=== PATIENT | female | born 1960 | race Caucasian/White ===

== ENCOUNTER → 2018-01-03 | Outpatient (CLI) | payer OTHER | LOC: M.CT 07:59 | DX: M47.894 Other spondylosis, thoracic region (principal); K80.20 Calculus of gallbladder without cholecystitis without obstruction; I89.8 Other specified noninfective disorders of lymphatic vessels and lymph nodes; I47.1 Supraventricular tachycardia; R12 Heartburn ==

== ENCOUNTER 2021-06-17 16:18 | Inpatient (IN) | payer OTHER ==
[~2021-06-17] VITALS: Ht 170.2 cm; Wt 88.5 kg
[2021-06-17 16:25] VITALS: BP 112/72
[2021-06-17] MEDS ORDERED: SIMVASTATIN80 MG PO (16:33)
[2021-06-17] MEDS ORDERED: PROCARDIA XL30 MG PO (16:33)
[2021-06-17 17:12] LABS: HEMATOCRIT 36.7 % (37.0-47.0); HEMOGLOBIN 12.8 gm/dL (12.0-15.0); MCH 30.8 pg (26.0-34.0); MCHC 34.9 g/dL (28.0-37.0); MCV 88.2 fL (80.0-100.0); MPV 8.2 fl. (7.2-11.1); NUCLEATED RBCS 0 /100WBC; PLATELET COUNT* 186 thou/uL (150-400); RBC 4.16 mil/uL (4.20-5.00); RDW-CV 13.2 % (10.5-14.5); WBC 5.1 thou/uL (4.0-11.0)
[2021-06-17 17:18] LABS: CALCIUM 7.7 mg/dL (8.5-10.1); CREATININE 1.3 mg/dL (0.6-1.3); POTASSIUM 3.4 mmol/L (3.5-5.1)
[2021-06-17 17:31] LABS: ALBUMIN 2.1 g/dL (3.4-5.0); TOTAL BILIRUBIN 1.2 mg/dL (<0.1-1.0); TOTAL PROTEIN 6.4 g/dL (6.4-8.2)
[2021-06-17 17:45] LABS: ABSOLUTE LYMPHOCYTES 0.7 thou/uL (0.8-5.3); ABSOLUTE MONOCYTES 0.3 thou/uL (0.0-1.2); ABSOLUTE NEUTROPHILS 4.1 thou/uL (1.6-8.1)
[2021-06-17 17:48] LABS: PLATELET ESTIMATE ADEQUATE
[2021-06-17 21:00] VITALS: BP 121/71
[2021-06-18 01:00] VITALS: BP 112/63
[2021-06-18 05:00] VITALS: BP 113/64
[2021-06-18 09:51] VITALS: BP 107/59
[2021-06-18] MEDS ORDERED: OTEZLA30 MG PO (10:28)
[2021-06-18] MEDS ORDERED: CARDIZEM CD 18180 M3 PO (10:28)
[2021-06-18] MEDS ORDERED: ZOCOR 20 MG TAB20 M1 PO (10:29)
[2021-06-18] MEDS ORDERED: BUMETANIDE 1 MG1 M1 PO (10:29)
[2021-06-18 10:41] VITALS: BP 107/59
[2021-06-18 15:47] VITALS: BP 102/49
[2021-06-18 20:00] VITALS: BP 129/66
[2021-06-19] VITALS (7 sets, daily range): BP systolic 107–145; BP diastolic 62–88
[2021-06-19 04:05] LABS: HEMATOCRIT 34.6 % (37.0-47.0); MCH 30.7 pg (26.0-34.0); MCHC 34.5 g/dL (28.0-37.0); MCV 88.8 fL (80.0-100.0); MPV 8.4 fl. (7.2-11.1); RBC 3.9 mil/uL (4.20-5.00); WBC 5.8 thou/uL (4.0-11.0)
[2021-06-19 04:29] LABS: POTASSIUM 3.7 mmol/L (3.5-5.1)
--- NOTE | 2021-06-19 11:39 | EKG ---
[place] [address] ELECTROCARDIOGRAM REPORT Name: CITLALY BAKER Room: [address] ADM IN .R.#: [id number] Admission: 06/17/21 Attend Phys: Vaishnavi Ramírez, Discharge: Date of : 62 Date of Service: 06/17/21 1656 Report #: [id number] THIS REPORT FOR: //name// [facility] ED Test Date: 2021-06-17 Test Time: 16:56:45 Pat Name: CITLALY BAKER Department: Room: [facility] Gender: F Senior Lead Software Engineer: MARYJANE : 1960 Requested By: Bryn Carbajal Order Number: [id number] MD: Vince Callahan Measurements Intervals [place] Rate: 75 P: 35 MI: 126 QRS: 3 QRSD: 97 T: 2 QT: 400 QTc: 447 Interpretive Statements Sinus rhythm Low voltage, precordial leads Borderline T wave abnormalities Baseline wander in lead(s) II,III,aVR,aVF,V3,V4,V6 No previous ECG available for comparison Electronically Signed On 06-19-2021 11:38:53 CDT by Vince Callahan [email or web address] <ELECTRONICALLY SIGNED> By: Vince Callahan MD, FAC 06/19/21 1138 1656 1656 Vince Callahan MD, FAC /EPI
[2021-06-20 00:04] VITALS: BP 144/85
[2021-06-20 03:44] VITALS: BP 116/74
[2021-06-20 04:23] LABS: HEMATOCRIT 33.3 % (37.0-47.0); HEMOGLOBIN 11.3 gm/dL (12.0-15.0); MCH 30.7 pg (26.0-34.0); MCHC 33.9 g/dL (28.0-37.0); MCV 90.6 fL (80.0-100.0); MPV 8.5 fl. (7.2-11.1); RBC 3.68 mil/uL (4.20-5.00); RDW-CV 13.3 % (10.5-14.5); WBC 5.4 thou/uL (4.0-11.0)
[2021-06-20 04:31] LABS: CALCIUM 7.9 mg/dL (8.5-10.1); POTASSIUM 3.6 mmol/L (3.5-5.1)
[2021-06-20 07:48] VITALS: BP 142/70
[2021-06-20 12:00] VITALS: BP 126/55
[2021-06-20 20:00] VITALS: BP 137/74
[2021-06-21] VITALS (7 sets, daily range): BP systolic 134–161; BP diastolic 64–92
[2021-06-22 04:57] VITALS: BP 129/73
[2021-06-22 06:00] LABS: ABSOLUTE LYMPHOCYTES 0.4 thou/uL (0.8-5.3); ABSOLUTE MONOCYTES 0.5 thou/uL (0.0-1.2); ABSOLUTE NEUTROPHILS 5.4 thou/uL (1.6-8.1); BASOPHILS 0.2 %; EOSINOPHILS 0.1 %; HEMATOCRIT 38.3 % (37.0-47.0); HEMOGLOBIN 12.9 gm/dL (12.0-15.0); LYMPHOCYTES 6.9 %; MCH 30.3 pg (26.0-34.0); MCHC 33.7 g/dL (28.0-37.0); MONOCYTES 8.3 %; MPV 7.8 fl. (7.2-11.1); NUCLEATED RBCS 0 /100WBC; PLATELET COUNT* 317 thou/uL (150-400); POLYS 84.5 %; RBC 4.26 mil/uL (4.20-5.00); RDW-CV 13.4 % (10.5-14.5); WBC 6.4 thou/uL (4.0-11.0)
[2021-06-22 06:38] LABS: ALBUMIN 2.4 g/dL (3.4-5.0); CALCIUM 7.8 mg/dL (8.5-10.1); CREATININE 0.9 mg/dL (0.6-1.3); POTASSIUM 3.8 mmol/L (3.5-5.1); TOTAL BILIRUBIN 0.6 mg/dL (<0.1-1.0); TOTAL PROTEIN 5.3 g/dL (6.4-8.2)
[2021-06-22 08:00] VITALS: BP 105/84
[2021-06-22 12:00] VITALS: BP 119/78
--- NOTE | 2021-06-22 15:49 | 2DMMODE ---
[place] [address] 2 D/M-MODE ECHOCARDIOGRAM Name: CITLALY BAKER Room: [address] IN .R.#: [id number] Admission: 06/17/21 Attend Phys: Vaishnavi Ramírez, Discharge: Date of : 62 Date of Service: 06/22/21 1549 Report #: [id number] THIS REPORT FOR: cc: Dipesh Concepcion MD, David L. MD [place], Michael J. MD [facility] ~ APPROVED REPORT Study performed: 06/22/2021 14:03:27 EXAM: Comprehensive 2D, Doppler, and color-flow Echocardiogram Patient Location: In-Patient Room #: 117 Status: routine BSA: 2.00 HR: 68 bpm BP: 119/78 mmHg Rhythm: NSR Other Information Study Quality: Good Indications Dyspnea 2D Dimensions IVSd: 11.42 (7-11mm) LVOT Diam: 21.71 (18-24mm) LVDd: 48.75 mm PWd: 11.01 (7-11mm) Ascending Ao: 30.03 (22-36mm) LVDs: 25.54 (25-40mm) Aortic Root: 33.14 mm Volumes Left Atrial Volume (Systole) LA ESV Index: 17.60 mL/m2 Aortic Valve AoV Peak Raymond.: 0.97 m/s AO Peak Gr.: 3.78 mmHg LVOT Max P.58 mmHg AO Mean Gr.: 2.17 mmHg LVOT Mean P.80 mmHg LVOT Max V: 0.63 m/s AO V2 VTI: 20.62 cm LVOT Mean V: 0.42 m/s IGO (VTI): 2.51 cm2 LVOT V1 VTI: 14.00 cm AI Rapides: 1.43 m/s2 [place] [address] 2 D/M-MODE ECHOCARDIOGRAM Name: CITLALY BAKER Room: [address] IN .R.#: [id number] Admission: 06/17/21 Attend Phys: Vaishnavi Ramírez, Discharge: Date of : 62 Date of Service: 06/22/21 1549 Report #: [id number] AI PHT: 680.29 ms Mitral Valve E/A Ratio: 0.96 MV Decel. Time: 331.51 ms MV E Max Raymond.: 0.52 m/s MV PHT: 96.14 ms MVA (PHT): 2.29 cm2 Pulmonary Valve PV Peak Raymond.: 1.01 m/s PV Peak Gr.: 4.04 mmHg Tricuspid Valve RAP Estimate: 5.00 mmHg TR Peak Gr.: 20.56 mmHg RVSP: 25.00 mmHg PA Pressure: 25.00 mmHg Left Ventricle The left ventricle is normal size. There is normal LV segmental wall motion. There is normal left ventricular wall thickness. Left ventricular systolic function is normal. LVEF is 55-60%. Transmitral Doppler flow pattern suggests impaired LV relaxation. Right Ventricle The right ventricle is normal size. The right ventricular systolic function is normal. Atria The left atrium size is normal. The right atrium size is normal. Aortic Valve The aortic valve is normal in structure. Mild aortic regurgitation. There is no aortic valvular stenosis. Mitral Valve The mitral valve is normal in structure. There is no mitral valve regurgitation noted. No evidence of mitral valve stenosis. Tricuspid Valve The tricuspid valve is normal in structure. Mild tricuspid regurgitation. No pulmonary hypertension. Pulmonic Valve The pulmonary valve is normal in structure. Trace [place]monic [place] [address] 2 D/M-MODE ECHOCARDIOGRAM Name: OLIVIACITLALY R Room: [address] IN [facility]#: [id number] Admission: 06/17/21 Attend Phys: Vaishnavi Ramírez, Discharge: Date of : 62 Date of Service: 06/22/21 1549 Report #: [id number] Great Vessels The aortic root is normal in size. IVC is normal in size and collapses >50% with inspiration. Pericardium There is no pericardial effusion. <Conclusion> The left ventricle is normal size. The left ventricle is normal size. There is normal left ventricular wall thickness. Left ventricular systolic function is normal. LVEF is 55-60%. Transmitral Doppler flow pattern suggests impaired LV relaxation. Mild aortic regurgitation. Mild tricuspid regurgitation. No pulmonary hypertension. IVC is normal in size and collapses >50% with inspiration. <ELECTRONICALLY SIGNED> By: Primitivo Peterson MD, FACC 06/22/21 1549 1549 1549 Primitivo Peterson MD, FACC /INF
[2021-06-22 16:45] VITALS: BP 141/80
[2021-06-22 20:10] VITALS: BP 123/71
[2021-06-23 00:05] VITALS: BP 131/69
[2021-06-23 04:15] VITALS: BP 148/71
[2021-06-23 05:43] LABS: HEMATOCRIT 38.7 % (37.0-47.0); HEMOGLOBIN 13.3 gm/dL (12.0-15.0); MCH 30.7 pg (26.0-34.0); MCHC 34.3 g/dL (28.0-37.0); MCV 89.5 fL (80.0-100.0); MPV 7.9 fl. (7.2-11.1); NUCLEATED RBCS 0 /100WBC; PLATELET COUNT* 319 thou/uL (150-400); RBC 4.32 mil/uL (4.20-5.00); RDW-CV 13.2 % (10.5-14.5); WBC 7.3 thou/uL (4.0-11.0)
[2021-06-23 06:04] LABS: ALBUMIN 2.3 g/dL (3.4-5.0); APTT 25.4 Seconds (25.0-31.3); CALCIUM 8.1 mg/dL (8.5-10.1); CREATININE 0.9 mg/dL (0.6-1.3); INR 1.1; MAGNESIUM 2.3 mg/dL (1.8-2.4); POTASSIUM 3.9 mmol/L (3.5-5.1); PROTIME 11.6 Seconds (9.20-11.50); TOTAL BILIRUBIN 0.6 mg/dL (<0.1-1.0); TOTAL PROTEIN 5.6 g/dL (6.4-8.2)
[2021-06-23 06:15] LABS: ABSOLUTE LYMPHOCYTES 0.5 thou/uL (0.8-5.3); ABSOLUTE MONOCYTES 0.1 thou/uL (0.0-1.2); ABSOLUTE NEUTROPHILS 6.6 thou/uL (1.6-8.1); PLATELET ESTIMATE ADEQUATE
[2021-06-23 06:16] LABS: ANISOCYTOSIS 1+; POIKILOCYTOSIS 1+
[2021-06-23 08:00] VITALS: BP 105/63
[2021-06-23 12:16] VITALS: BP 137/81
[2021-06-23 12:30] LABS: INFLUENZA A ANTIGEN Negative (Negative); INFLUENZA B ANTIGEN Negative (Negative)
[2021-06-23 16:59] VITALS: BP 130/79
--- NOTE | 2021-06-23 17:58 | CON ---
[address] [address] CONSULTATION Name: CITLALY BAKER Room: [address] ADM IN M.R.#: [id number] Admission: 06/17/21 Attend Phys: Vaishnavi Ramírez MD Discharge: Date of : 62 Report #: [id number] THIS REPORT FOR: cc: Dipesh Concepcion MD, David L. MD Pervez, Adeel MD ~ DATE OF CONSULTATION: 06/22/2021 REQUESTING PHYSICIAN: Javy Bridges MD INDICATION FOR CONSULTATION: Hypoxia, possible COVID-19. HISTORY OF PRESENT ILLNESS: A 61-year-old female with past medical history includes a history of supraventricular tachycardia. She does not have any other history of cardiac or respiratory disease. She is a lifetime nonsmoker. She has not been vaccinated for COVID-19. The patient states that she has had respiratory complaints beginning towards the first week of this month ago. She says that she has been short of breath. She has been coughing. Initially, she also did have nausea and vomiting as well as diarrhea. She has only had scanty sputum production. She does not have chest pain. She is not describing upper respiratory complaints. There is no increase in swelling of lower extremities. There is no calf pain. The patient used a home kit for COVID-19 and tested herself and she reports that the test was positive. The patient states that this was on 06/06. She says that subsequently she continued to have worsening shortness of breath and therefore eventually came to the emergency room at our hospital on 06/17. O2 saturation was in the 70s on initial presentation. She was maintaining O2 saturation in the low 90s with 4 liters of oxygen in place. Since then, the patient has been treated with dexamethasone. She has also received remdesivir and received Decadron, in fact received 1 unit of convalescent plasma as well. Upon arrival, a COVID-19 antigen was performed, but this was negative. The PCR for COVID-19 was sent off, which is in fact also just came back negative. The patient's chest x-rays; however, continues to show extensive pulmonary infiltrates. Her last chest x-ray is now 3 days old. The patient, however, is also requiring 5 liters of oxygen to maintain O2 saturation in the low 90s. Overall, she does report some improvement in shortness of breath since she arrived at this hospital. REVIEW OF SYSTEMS: For 12 points is negative except as mentioned above. PAST MEDICAL HISTORY: Supraventricular tachycardia, hyperlipidemia, , hysterectomy, just had an echocardiogram performed, which shows a left ventricular ejection fraction of 55-60% with a pulmonary artery systolic [place] 25. [place] [address] CONSULTATION Name: CITLALY BAKER Room: [address] IN .R.#: [id number] Admission: 06/17/21 Attend Phys: Vaishnavi Ramírez MD Discharge: Date of : 62 Report #: [id number] SOCIAL HISTORY: Lifetime nonsmoker. No known history of heavy alcohol use or illegal drug use. IMMUNIZATION HISTORY: Has not been vaccinated for COVID-19. FAMILY HISTORY: Her also recently had respiratory complaints and has just recovered. ALLERGIES: TETANUS TOXOID. CURRENT MEDICATIONS: List in [place] reviewed. Home medication list also in [facility] reviewed. PHYSICAL EXAMINATION: GENERAL: She is alert, awake and oriented, did not appear to be in any distress at this time. VITAL SIGNS: Has a pulse of 62 and a blood pressure of 141/80, saturating 94%. She is on 5 liters nasal cannula. Respiratory rate is 18. She is afebrile with a temperature of 36.0. HEENT: Head is normocephalic and atraumatic. Pupils are equal and reactive. There is no throat erythema. NECK: Does not show raised JVP, asymmetry, mass or lymph nodes. CHEST: Symmetrical expansion on inspection and palpation. On auscultation, breath sounds are bilaterally equal. I do not hear any added sounds. HEART: Regular. There is no murmur. ABDOMEN: Soft and nontender. LOWER EXTREMITIES: Showed no edema, no calf tenderness. SKIN: Dry and intact. NEUROLOGIC: Moves all extremities bilaterally equally and spontaneously with no focal deficit identified. ASSESSMENT AND PLAN: 1. Acute hypoxemic respiratory failure. The patient has extensive bilateral infiltrates and while it will also be possible for certain autoimmune processes as well as fluid overload to give this picture, at this point, it appears more likely to me that we are dealing with an acute respiratory tract infection. While atypical bacterial infections can also lead to this picture, the findings on the chest x-rays are more consistent with either a viral or atypical respiratory tract infection. There is a CTA chest already ordered by Dr. Bridges. I agree with proceeding with a CT chest to evaluate this further. 2. Extensive bilateral pulmonary infiltrates/possible COVID-19. Note that she tested positive at her home per her home kit on 06/06, but COVID-19 antigen on arrival is negative. COVID-19 PCR is also negative. I still feel that COVID-19 [place] [address] CONSULTATION Name: CITLALY BAKER Room: [address] IN [facility]#: [id number] Admission: 06/17/21 Attend Phys: Vaishnavi Ramírez MD Discharge: Date of : 62 Report #: [id number] will be possible, but various other viral and atypical/bacterial infections will also be possible. I will work this up further by obtaining COVID-19 antibodies. We will also do a viral respiratory panel. We will check influenza swab. Recommend obtaining a mycoplasma antibodies and also recommend obtaining urine for legionella antigen and pneumococcal antigen. The patient is already on doxycycline, pending further review by CT and serologies. I continued doxycycline and added ceftriaxone. I would continue dexamethasone in addition to COVID-19. It is beneficial to give her steroids in various other suspected infections as well. Also as COVID-19 is not completely ruled out at this time, I suggested continuing with 2 more doses of remdesivir as well unless the liver function tests rise further in which case I would discontinue. Regardless, even if the patient does have COVID-19 by this point, I would expect a viral load to be low and therefore she is unlikely to be significantly infectious and therefore, I feel that it is reasonable to keep her off isolation. 3. Elevated liver function tests. See discussion above. We will also check a lipase level. If it remains elevated, then we will also do a limited abdominal ultrasound. 4. Past medical history of supraventricular tachycardia. 5. Deep venous thrombosis prophylaxis. She is on Lovenox. 6. Clostridium difficile prophylaxis. We will add Lactinex. Thanks for this consultation. <ELECTRONICALLY SIGNED> By: Naman Soto MD 06/23/21 1758 1650 2045Akwan Soto MD /nt
[2021-06-23 21:00] VITALS: BP 125/73
[2021-06-24 04:44] VITALS: BP 129/60
[2021-06-24] MEDS ORDERED: DOXYCYCLINE 10100 MG PO (10:15)
[2021-06-24] MEDS ORDERED: DEXAMETHASONE1 MG PO (10:17)
[2021-06-24] MEDS ORDERED: PROAIR HFA8.5 GM INH (10:17)
[2021-06-24] MEDS ORDERED: PROTONIX40 M4 PO (10:17)
[2021-06-24 13:28] VITALS: BP 120/52
[2021-06-27 02:06] LABS: MYCOPLASMA PNEUMONIA IgG <100 U/mL (0-99); MYCOPLASMA PNEUMONIA IgM <770 U/mL (0-769)
== END 2021-06-24 14:40 | disposition home or self-care (01) | DRG 177 ==
LOC: M.ERS 16:18 → M.TBA-ER 17:51 → M.ORTHSURG 17:51 → M.TBA-ER 21:08 → M.ORTHSURG 06-18 11:11
PROVIDERS: Emergency Medicine Emergency Medical Services; Family Medicine; Internal Medicine; Internal Medicine Critical Care Medicine; ADMIT Internal Medicine; ATTEND Internal Medicine
DX: U07.1 COVID-19 (principal); J96.01 Acute respiratory failure with hypoxia; J12.82 Pneumonia due to coronavirus disease 2019; I47.1 Supraventricular tachycardia; E78.5 Hyperlipidemia, unspecified; E87.6 Hypokalemia; R74.01 Elevation of levels of liver transaminase levels; Z90.710 Acquired absence of both cervix and uterus; Z88.7 Allergy status to serum and vaccine

== ENCOUNTER → 2021-07-26 | Outpatient (CLI) | payer OTHER ==
[~2021-07-26] MED LIST: BUMETANIDE 1 MG1 M1 PO; CARDIZEM CD 18180 M3 PO; DEXAMETHASONE1 MG PO; DOXYCYCLINE 10100 MG PO; OTEZLA30 MG PO; PROAIR HFA8.5 GM INH; PROCARDIA XL30 MG PO; PROTONIX40 M4 PO; SIMVASTATIN80 MG PO; ZOCOR 20 MG TAB20 M1 PO
== END ==
LOC: M.LAB 12:36
PROVIDERS: ATTEND Internal Medicine Critical Care Medicine
DX: Z12.31 Encounter for screening mammogram for malignant neoplasm of breast (principal); J84.89 Other specified interstitial pulmonary diseases; Z20.822 Contact with and (suspected) exposure to COVID-19; R91.8 Other nonspecific abnormal finding of lung field